=== PATIENT | female | born 1980 | race Caucasian/White ===

== ENCOUNTER 2018-03-13 21:20 | Inpatient (IN) | payer OTHER ==
[2018-03-13] MEDS: NS 1,000 ML IV (20:54)
[2018-03-13] MEDS: ONDANSETRON 4MG/2ML VIAL (J2405) IV (20:54)
[2018-03-13] MEDS: MORPHINE 4 MG/ML 1ML VIAL/SYRINGE (J2270) IV (20:55)
[2018-03-13 21:10] LABS: BASO # 0.1 10^3/uL (0.0-0.2); BASO % 0.3 % (0.0-1.0); EOS # 0.1 10^3/uL (0.0-0.50); EOS % 0.5 % (0.0-3.0); HEMATOCRIT 42.9 % (36.0-47.0); IMMATURE GRANULOCYTE % 0.4 % (0-3.0); LYMPH % 12.2 % (24.0-44.0); MEAN CORPUSCULAR HEMOGLOBIN 32.4 pg (27.0-33.0); MEAN CORPUSCULAR HGB CONC 32.6 g/dl (32.0-36.5); MEAN CORPUSCULAR VOLUME 99.3 fl (80.0-96.0); MONO # 0.8 10^3/uL (0.0-0.8); MONO % 5.2 % (0.0-5.0); NEUTROPHILS # 13.2 10^3/uL (1.8-7.7); NEUTROPHILS % 81.4 % (36.0-66.0); PLATELET COUNT, AUTOMATED 303 10^3/uL (150-450); RED BLOOD COUNT 4.32 10^6/uL (4.00-5.40); RED CELL DISTRIBUTION WIDTH 12.3 % (11.5-14.5); WHITE BLOOD COUNT 16.2 10^3/uL (4.0-10.0)
[2018-03-13] MEDS: LORazepam 2 MG/ML VIAL (J2060) IV (21:17)
[2018-03-13 21:39] LABS: ALBUMIN 3.5 GM/DL (3.2-5.2); ALBUMIN/GLOBULIN RATIO 0.97 (1.00-1.93); ALKALINE PHOSPHATASE 92 U/L (45-117); ALT/SGPT 217 U/L (12-78); ANION GAP 8 MEQ/L (8-16); AST/SGOT 243 U/L (7-37); BILIRUBIN,DIRECT 0.4 MG/DL (0.0-0.2); BILIRUBIN,TOTAL 0.7 MG/DL (0.2-1.0); BLOOD UREA NITROGEN 15 MG/DL (7-18); CALCIUM LEVEL 8.8 MG/DL (8.5-10.1); CARBON DIOXIDE LEVEL 26 MEQ/L (21-32); CHLORIDE LEVEL 106 MEQ/L (98-107); CREATININE FOR GFR 0.69 MG/DL (0.55-1.30); GLOMERULAR FILTRATION RATE > 60.0 (>60); GLUCOSE, FASTING 104 MG/DL (70-100); LIPASE 89 U/L (73-393); POTASSIUM SERUM 3.7 MEQ/L (3.5-5.1); SODIUM LEVEL 140 MEQ/L (136-145); TOTAL PROTEIN 7.1 GM/DL (6.4-8.2)
[2018-03-13 22:12] LABS: AMORPHOUS SEDIMENT RFX SMALL (NEGATIVE); KETONE, URINE AUTO RFX NEGATIVE (NEGATIVE); MUCUS, URINE RFX SMALL (NEGATIVE); NITRITE, URINE AUTO RFX NEGATIVE (NEGATIVE); RBC, URINE AUTO RFX 2 /HPF (0-3); SPECIFIC GRAVITY UR AUTO RFX 1.018 (1.002-1.035); SQUAM EPITHELIAL CELL UR AURFX 6 /HPF (0-6); WBC, URINE AUTO RFX 4 /HPF (0-3)
[2018-03-13] MEDS: NICOTINE 21MG/24HR 1 EA TRANSDERMAL TD ×2 (22:30→23:36)
[2018-03-13 22:41] LABS: LEUKOCYTE ESTERASE UR AUTO RFX TRACE (NEGATIVE)
[2018-03-13] MEDS: PIPERACILLIN/TAZOBACTAM SOD 3.375 GM in D5W MINI-BAG PLUS 50 ML IV (23:32)
[2018-03-14] MEDS: NS 1,000 ML IV ×2 (00:15→12:50)
[2018-03-14] MEDS: MORPHINE 4 MG/ML 1ML VIAL/SYRINGE (J2270) IV ×2 (00:54→20:50)
[2018-03-14] MEDS: PIPERACILLIN/TAZOBACTAM SOD 3.375 GM in D5W MINI-BAG PLUS 50 ML IV ×4 (06:00→23:22)
[2018-03-14] MEDS: HEPARIN SOD (PORCINE) 5000 UNITS/ML VIAL SC ×3 (06:40→20:51)
[2018-03-14 08:37] LABS: HEMATOCRIT 38.6 % (36.0-47.0); HEMOGLOBIN 12.3 g/dl (12.0-15.5); MEAN CORPUSCULAR HEMOGLOBIN 32.4 pg (27.0-33.0); MEAN CORPUSCULAR HGB CONC 31.9 g/dl (32.0-36.5); MEAN CORPUSCULAR VOLUME 101.6 fl (80.0-96.0); PLATELET COUNT, AUTOMATED 247 10^3/uL (150-450); RED CELL DISTRIBUTION WIDTH 12.5 % (11.5-14.5); WHITE BLOOD COUNT 9.5 10^3/uL (4.0-10.0)
[2018-03-14 08:52] LABS: C REACTIVE PROTEIN QUANTITATIV 0.85 MG/DL (0.00-0.30)
[2018-03-14 08:57] LABS: ALBUMIN/GLOBULIN RATIO 1.03 (1.00-1.93); ALKALINE PHOSPHATASE 94 U/L (45-117); ALT/SGPT 377 U/L (12-78); ANION GAP 4 MEQ/L (8-16); AST/SGOT 297 U/L (7-37); BILIRUBIN,TOTAL 1.7 MG/DL (0.2-1.0); BLOOD UREA NITROGEN 9 MG/DL (7-18); CALCIUM LEVEL 8.2 MG/DL (8.5-10.1); CARBON DIOXIDE LEVEL 27 MEQ/L (21-32); CHLORIDE LEVEL 109 MEQ/L (98-107); GLOMERULAR FILTRATION RATE > 60.0 (>60); GLUCOSE, FASTING 99 MG/DL (70-100); POTASSIUM SERUM 4.2 MEQ/L (3.5-5.1); SODIUM LEVEL 140 MEQ/L (136-145); TOTAL PROTEIN 5.9 GM/DL (6.4-8.2)
[2018-03-14] MEDS ORDERED: LORazepam 1 MG TAB PO (09:00)
[2018-03-14 09:03] LABS: ERYTHROCYTE SEDIMENTATION RATE 9 mm/hr (0-20)
[2018-03-14] MEDS: LORazepam 0.5 MG TAB PO ×2 (10:21→20:50)
[2018-03-14] MEDS: VENLAFAXINE 37.5 MG TAB PO (10:22)
[2018-03-14 20:02] LABS: ALBUMIN 2.9 GM/DL (3.2-5.2); ALBUMIN/GLOBULIN RATIO 0.94 (1.00-1.93); ALKALINE PHOSPHATASE 120 U/L (45-117); ALT/SGPT 355 U/L (12-78); AST/SGOT 211 U/L (7-37); BILIRUBIN,DIRECT 0.9 MG/DL (0.0-0.2); BILIRUBIN,TOTAL 1.4 MG/DL (0.2-1.0)
[2018-03-14] MEDS: NICOTINE 21MG/24HR 1 EA TRANSDERMAL TD (21:29)
[2018-03-15] MEDS: NS 1,000 ML IV (01:15)
[2018-03-15] MEDS: HEPARIN SOD (PORCINE) 5000 UNITS/ML VIAL SC (05:56)
[2018-03-15] MEDS: PIPERACILLIN/TAZOBACTAM SOD 3.375 GM in D5W MINI-BAG PLUS 50 ML IV (06:00)
[2018-03-15 08:24] LABS: HEMATOCRIT 39.2 % (36.0-47.0); HEMOGLOBIN 12.5 g/dl (12.0-15.5); MEAN CORPUSCULAR HGB CONC 31.9 g/dl (32.0-36.5); MEAN CORPUSCULAR VOLUME 100.3 fl (80.0-96.0); PLATELET COUNT, AUTOMATED 237 10^3/uL (150-450); RED BLOOD COUNT 3.91 10^6/uL (4.00-5.40); RED CELL DISTRIBUTION WIDTH 12.3 % (11.5-14.5); WHITE BLOOD COUNT 6.6 10^3/uL (4.0-10.0)
[2018-03-15 08:27] LABS: ALBUMIN/GLOBULIN RATIO 1.07 (1.00-1.93); ALKALINE PHOSPHATASE 125 U/L (45-117); ALT/SGPT 303 U/L (12-78); ANION GAP 6 MEQ/L (8-16); AST/SGOT 139 U/L (7-37); BILIRUBIN,TOTAL 0.7 MG/DL (0.2-1.0); BLOOD UREA NITROGEN 6 MG/DL (7-18); CARBON DIOXIDE LEVEL 25 MEQ/L (21-32); CHLORIDE LEVEL 111 MEQ/L (98-107); CREATININE FOR GFR 0.63 MG/DL (0.55-1.30); GLOMERULAR FILTRATION RATE > 60.0 (>60); GLUCOSE, FASTING 91 MG/DL (70-100); POTASSIUM SERUM 3.5 MEQ/L (3.5-5.1); SODIUM LEVEL 142 MEQ/L (136-145); TOTAL PROTEIN 5.8 GM/DL (6.4-8.2)
[2018-03-15 10:34] LABS: HEPATITIS B SURFACE ANTIGEN NEGATIVE (NEGATIVE)
[2018-03-15] MEDS: LORazepam 0.5 MG TAB PO (10:35)
[2018-03-15] MEDS: VENLAFAXINE 37.5 MG TAB PO (10:35)
[2018-03-15 11:01] LABS: HEPATITIS C VIRUS ABY INDEX < 0.0 INDEX (<0.8)
[2018-03-15 11:04] LABS: HEPATITIS A ANTIBODY IGM NEGATIVE (NEGATIVE)
== END 2018-03-15 11:57 | disposition home or self-care (01) ==
LOC: M ED INP 23:59 → M PED 03-14 01:05 → M ED 21:20
PROVIDERS: Hospitalist
DX: K80.70 Calculus of gallbladder and bile duct without cholecystitis without obstruction (principal); Z68.41 Body mass index [BMI] 40.0-44.9, adult; F41.9 Anxiety disorder, unspecified; Z79.899 Other long term (current) drug therapy; F17.200 Nicotine dependence, unspecified, uncomplicated

== ENCOUNTER → 2019-07-31 | Outpatient (CLI) | payer OTHER ==
[~2019-07-31] MED LIST: AUGM875T28 PO; LORA0.5T5; LORA1TAB4 PO; METH4PACK; OXYC-517 PO; VALA1TAB5; VENL37TA; VENL37TA PO
--- NOTE | 2019-07-31 13:48 | REP ---
PELVIC ULTRASOUND: Real-time sonographic evaluation of the pelvis performed utilizing transabdominal and endovaginal technique. Uterus measures 11.6 x 5.7 x 7.3 cm. No gestational sac is seen in the endometrial canal. Right ovary measures 4.3 x 3.0 x 3.6 cm and contains a complex cystic structures 2.1 cm. Left ovary is normal in size and echotexture 2.1 x 1.8 x 1.9 cm. There is no other evidence of adnexal mass or free fluid. The above findings could indicate very early intrauterine , missed AB or ectopic . Suggest correlation with serial quantitative beta hCG values. Electronically Signed by Durga Esposito MD 08/01/2019 09:09 A
== END ==
LOC: M RAD 12:34
PROVIDERS: ATTEND Nurse Practitioner Family
DX: Z32.01 Encounter for pregnancy test, result positive (principal)

== ENCOUNTER → 2020-08-13 | Outpatient (REF) | payer OTHER | LOC: M LAB REF 12:15 | PROVIDERS: ATTEND Advanced Practice Midwife | DX: Z34.83 Encounter for supervision of other normal pregnancy, third trimester (principal) ==

== ENCOUNTER 2020-09-10 06:29 | Inpatient (IN) | payer OTHER ==
[~2020-09-10] VITALS: Ht 162.6 cm; Wt 131.4 kg
[2020-09-10 07:06] VITALS: BP 129/81
[2020-09-10 08:07] VITALS: BP 133/68
[2020-09-10 08:16] LABS: HEMOGLOBIN 11.6 g/dl (12.0-15.5); MEAN CORPUSCULAR HEMOGLOBIN 31.1 pg (27.0-33.0); MEAN CORPUSCULAR HGB CONC 31.4 g/dl (32.0-36.5); MEAN CORPUSCULAR VOLUME 99.2 fl (80.0-96.0); PLATELET COUNT, AUTOMATED 143 10^3/uL (150-450); RED BLOOD COUNT 3.73 10^6/uL (4.00-5.40); WHITE BLOOD COUNT 13.6 10^3/uL (4.0-10.0)
--- NOTE | 2020-09-10 08:26 | IPNPDOC ---
Text Note Date of Service The patient was seen on 09/10/20. NOTE L&D triage note Morena is a 40yo with SIUP at 39wk having hx of 1 section followed by 3 successful VBACs presenting with ctx. She notes they have become increasingly more uncomfortable over the past couple hours. No LOF, no vaginal bleeding, good movement. Patient sees Dr. Rodriguez for her OB care. Vitals wnl, afebrile Gen: WDWN, obese female in NAD Abdomen: soft, gravid SCE performed by RN on presentation at 0630: 3-4/80/-2, posterior (in office cervix check prior to this was 2-3cm reportedly) Cat I FHRT with bl 120's, +accels, -decels, mod eliseo Naranja: ctx difficult to trace given morbid obesity Assessment: Morena is a 40yo with SIUP at 39wk with ctx, possibly in early labor. Vitals wnl, benign exam. Reassuring assessment Plan: -Recheck SCE 2hr after prior and if there is cervical change, would admit -Obtain routine labs now in the event that patient is in labor since she will desire an epidural -report given to EMMA Mendoza who will discuss care further with Dr. Rodriguez after next SCE -CEFM MD REINA Rome Fishbone, I+O Diana HUANG I+O Laboratory Tests 09/10/20 08:02 Aline Burciaga MD Sep 10, 2020 08:26
[2020-09-10] MEDS ORDERED: OXYTOCIN 30 UNITS IN 0.9% NaCl 500ML IV BAG (J2590) As Ordered ONE (08:36)
[2020-09-10 08:47] VITALS: BP 131/87
[2020-09-10] MEDS ORDERED: OXYTOCIN DRIP 30 UNITS in IV 1 EA IV PRN (09:00)
[2020-09-10] MEDS ORDERED: IBUPROFEN 800 MG TAB PO PRN (09:25)
[2020-09-10] MEDS ORDERED: METHYLERGONOVINE MALEATE 0.2 MG TAB PO PRN (09:25)
[2020-09-10] MEDS ORDERED: ACETAMINOPHEN TAB 650MG DOSE (2X325MG) PO PRN (09:25)
[2020-09-10] MEDS ORDERED: ANUSOL HC CREAM 30GM TOP PRN (09:25)
[2020-09-10] MEDS ORDERED: RHOGAM 300 MCG (1500 IU) INJ (J2790) IM SCH (09:25)
[2020-09-10] MEDS ORDERED: IBUPROFEN 600MG TAB PO PRN (09:25)
[2020-09-10] MEDS ORDERED: MEASLES,MUMPS,RUBELLA VACCINE INJ (MMR-II) (90707) SC SCH (09:25)
[2020-09-10] MEDS ORDERED: DIBUCAINE 1% OINTMENT 30GM TOP PRN (09:25)
[2020-09-10] MEDS ORDERED: DOCUSATE SODIUM 100MG CAPSULE PO PRN (09:25)
--- NOTE | 2020-09-10 09:34 | HPE ---
HISTORY AND PHYSICAL DATE OF ADMISSION: 09/10/2020 HISTORY OF PRESENT ILLNESS: Morena is a 40-year-old 9, para 7-0-2-7 at 39 weeks gestation, EDC of 09/17/2020 based on first trimester ultrasound. She presents to labor and delivery today at approximately 0650 with report of contractions that started at 0200 and that have become increasingly uncomfortable. She reports them to be about every five minutes. Denies vaginal bleeding or leakage of fluid. The fetus has been active. care was initiated at [facility] in the first trimester. course complicated by prior section with successful x3, as well as positive GBS screening at 160 and noncompliant to not complete the three hour glucose tolerance test. She reports her fetus has been active. Denies vaginal bleeding and leakage of fluid. Contractions every five minutes. OBSTETRIC HISTORY: 1. one vaginal at 42 weeks gestation, female 6 pounds 11 ounces. 2. two vaginal 6 pound 3 ounce female at 41 weeks gestation. 3. three low transverse section with weight 6 pounds 10 ounces at 40 weeks. 4. four 9 pounds 1 ounce at 40 weeks female. 5. five male 7 pounds 11 ounces. 6. six 7 pounds 4 ounce male at 39 weeks gestation. 7. seven spontaneous miscarriage. 8. eight elective termination of . OBSTETRIC LABORATORY DATA: A positive. Antibody screen negative. Rubella immune. VDRL nonreactive. Urine culture now growth. Hepatitis B surface antigen negative. HIV negative. Pap normal. Gonorrhea and chlamydia negative. Gestational diabetic screening abnormal at 160; she did not complete the three hour glucose tolerance test. No diagnosis of gestational diabetes was ever confirmed. Group B strep culture negative. PAST MEDICAL HISTORY: Non-contributory. Obesity. PAST SURGICAL HISTORY: section. FAMILY HISTORY: Gastrointestinal cancer. SOCIAL HISTORY: The patient is legally . She is a smoker. She denies alcohol and drug use. She denies any history of sexually transmitted infections. She denies history of abuse physical, sexual, and emotional. ALLERGIES: SULFATRIM. CURRENT MEDICATIONS: 1. Venlafaxine 37.5 mg. 2. Lorazepam 0.5 mg. PHYSICAL EXAMINATION: VITAL SIGNS: BP 129/81. heart rate was 130 with moderate variability, positive accelerations, and positive early decelerations. Contractions appear to be every five minutes. PELVIC: Sterile vaginal exam performed at 0652 by RN, at 3-4 cm dilated, 80% effaced, -2 station, intact. ASSESSMENT: Intrauterine at 39 weeks gestation. heart rate is category 1. Active labor. PLAN: Admit the patient to labor and delivery. Routine laboratories. Clear liquid diet. Anticipate spontaneous vaginal delivery (vaginal after section). The patient may consider IV pain medications or epidural for her labor coping.
--- NOTE | 2020-09-10 09:34 | DN ---
DELIVERY NOTE DATE OF DELIVERY: 09/10/2020 TIME OF : 0836 GENDER: Male APGARS: 9 and 9 LACERATIONS: None ANESTHESIA: None ESTIMATED BLOOD LOSS: COUNTS: Correct and verified DESCRIPTION OF DELIVERY: Morena is 11, para 7-0-2-7 now who was admitted to labor and delivery in active labor. Her labor progressed under its own sanchez. She coped with her labor physiologically. She had spontaneous rupture of membranes of light meconium-stained fluid at 0830. She pushed to a normal spontaneous vaginal delivery (vaginal after section) at 0836 in occiput anterior (OA) position with restitution to right occiput transverse (ROT) position at 0836. Shoulders delivered spontaneously and the corpus immediately followed. [place] male. Mouth and nares were bulb suctioned and he was placed on the maternal abdomen crying and active. Cord was clamped x2 once pulsations ceased and cut by the father of the baby under my direction. Spontaneous expulsion of an intact placenta with three-vessel cord by Pham mechanism was at 0846. Uterine hemostasis achieved with IV Pitocin rapid infusion and uterine fundal massage. Estimated blood loss 300 mL. Perineum and vagina inspected noted to be intact. male weighed 3750 grams, 8 pounds 4 ounces with 9 and 9. Mom plans to breastfeed her son. At the close of delivery, lap counts and instruments counts were correct and verified.
[2020-09-10 11:10] VITALS: BP 130/69
[2020-09-10] MEDS: LORazepam 0.5 MG TAB PO SCH (11:50)
[2020-09-10] MEDS: VENLAFAXINE 37.5 MG TAB PO SCH (11:50)
[2020-09-10] MEDS: PRENATAL VITAMINS CHEWABLE TABLET PO SCH (11:51)
[2020-09-10 18:00] VITALS: BP 157/82
[2020-09-10] MEDS: ACETAMINOPHEN 500 MG TAB PO PRN (22:48)
[2020-09-11 06:00] VITALS: BP 124/69
[2020-09-11] MEDS: ACETAMINOPHEN 500 MG TAB PO PRN (08:15)
[2020-09-11] MEDS: PRENATAL VITAMINS CHEWABLE TABLET PO SCH (08:15)
[2020-09-11] MEDS: LORazepam 0.5 MG TAB PO SCH (08:15)
[2020-09-11] MEDS: VENLAFAXINE 37.5 MG TAB PO SCH (08:25)
[2020-09-11] MEDS ORDERED: BOOSTRIX/ADACEL VACCINE (DIPHTH/PERTUSS/ACELL/TETANUS) 0.5ML SYR IM ONE (09:00)
[2020-09-11] MEDS ORDERED: IBUP80TA PO (09:12)
[2020-09-11] MEDS ORDERED: ACET-683 PO (09:12)
== END 2020-09-11 09:30 | disposition home or self-care (01) | DRG 560 ==
LOC: M LDO 06:29 → M LDI 06:59 → M OBS 11:02
PROVIDERS: ADMIT Obstetrics & Gynecology; ATTEND Obstetrics & Gynecology
PROC: 10E0XZZ Delivery of Products of Conception, External Approach (ICD-10-PCS; principal; 2020-09-10)
DX: O34.211 Maternal care for low transverse scar from previous cesarean delivery (principal); Z37.0 Single live birth; Z3A.39 39 weeks gestation of pregnancy; O09.523 Supervision of elderly multigravida, third trimester; Z91.19 Patient's noncompliance with other medical treatment and regimen; F17.200 Nicotine dependence, unspecified, uncomplicated; O99.334 Smoking (tobacco) complicating childbirth

== ENCOUNTER → 2021-02-17 | Outpatient (REF) | payer OTHER ==
[~2021-02-17] MED LIST changes: +ACET-683 PO; +IBUP80TA PO
[2021-02-17 18:08] LABS: HEMATOCRIT 40.4 % (36.0-47.0); HEMOGLOBIN 12.5 g/dl (12.0-15.5); MEAN CORPUSCULAR HEMOGLOBIN 29.8 pg (27.0-33.0); MEAN CORPUSCULAR HGB CONC 30.9 g/dl (32.0-36.5); MEAN CORPUSCULAR VOLUME 96.2 fl (80.0-96.0); PLATELET COUNT, AUTOMATED 262 10^3/uL (150-450); WHITE BLOOD COUNT 11.7 10^3/uL (4.0-10.0)
[2021-02-17 21:03] LABS: HCG, SERUM QUANTITATIVE 26283 MIU/ML; HIV 1&2 SCREEN CENTAUR NEGATIVE (NEGATIVE)
== END ==
LOC: M LAB REF 16:49
PROVIDERS: ATTEND Obstetrics & Gynecology
DX: Z32.01 Encounter for pregnancy test, result positive (principal); O36.80X0 Pregnancy with inconclusive fetal viability, not applicable or unspecified

== ENCOUNTER → 2021-04-16 | Outpatient (REF) | payer OTHER | LOC: M LAB REF 12:54 | PROVIDERS: ATTEND Advanced Practice Midwife | DX: Z34.81 Encounter for supervision of other normal pregnancy, first trimester (principal); Z3A.00 Weeks of gestation of pregnancy not specified ==

== ENCOUNTER 2021-06-08 14:00 | Emergency (ER) | payer OTHER ==
[~2021-06-08] VITALS: Ht 160 cm; Wt 127.3 kg
[2021-06-08 15:15] LABS: BASO % 0.2 % (0.0-1.0); EOS # 0.1 10^3/uL (0.0-0.5); EOS % 0.3 % (0.0-3.0); HEMATOCRIT 34.7 % (36.0-47.0); HEMOGLOBIN 11.3 g/dl (12.0-15.5); LYMPH # 1.5 10^3/uL (1.5-5.0); LYMPH % 10.1 % (24.0-44.0); MEAN CORPUSCULAR HEMOGLOBIN 32.4 pg (27.0-33.0); MEAN CORPUSCULAR HGB CONC 32.6 g/dl (32.0-36.5); MEAN CORPUSCULAR VOLUME 99.4 fl (80.0-96.0); MONO # 0.6 10^3/uL (0.0-0.8); NEUTROPHILS # 12.4 10^3/uL (1.5-8.5); NEUTROPHILS % 84.9 % (36.0-66.0); PLATELET COUNT, AUTOMATED 207 10^3/uL (150-450); RED BLOOD COUNT 3.49 10^6/uL (4.00-5.40); WHITE BLOOD COUNT 14.6 10^3/uL (4.0-10.0)
[2021-06-08] MEDS ORDERED: HEPARIN SOD (PORCINE) 5000UNITS/ML 1ML VIAL/SYRINGE IV ONE (15:25)
[2021-06-08] MEDS ORDERED: HEPARIN DRIP 25,000 UNITS in IV 1 EA IV SCH (15:25)
[2021-06-08 15:28] LABS: INR 0.95; PROTHROMBIN TIME 13.1 SECONDS (12.7-14.5)
[2021-06-08 15:29] LABS: PARTIAL THROMBOPLASTIN TIME 25.2 SECONDS (25.9-37.0)
[2021-06-08] MEDS ORDERED: ISOVUE-370 76% 100ML VIAL As Ordered ONE (15:34)
[2021-06-08] MEDS ORDERED: CLOPIDOGREL 300 MG TAB (PLAVIX) PO STA (16:23)
[2021-06-08 16:33] LABS: RSV AMPLIFICATION NEGATIVE (NEGATIVE)
[2021-06-08] MEDS ORDERED: NITROGLYCERIN 0.4 MG SUBL TABLET SL STA (18:06)
[2021-06-08 18:15] VITALS: BP 128/69
== END 2021-06-08 18:37 | disposition short-term general hospital (02) ==
LOC: M ED 14:00
DX: O99.412 Diseases of the circulatory system complicating pregnancy, second trimester (principal); I21.4 Non-ST elevation (NSTEMI) myocardial infarction; O98.512 Other viral diseases complicating pregnancy, second trimester; U07.1 COVID-19; O99.342 Other mental disorders complicating pregnancy, second trimester; F41.9 Anxiety disorder, unspecified; O99.212 Obesity complicating pregnancy, second trimester; Z79.899 Other long term (current) drug therapy; Z88.1 Allergy status to other antibiotic agents; Z88.2 Allergy status to sulfonamides; O99.332 Smoking (tobacco) complicating pregnancy, second trimester; F17.210 Nicotine dependence, cigarettes, uncomplicated; Z3A.23 23 weeks gestation of pregnancy
CPT/HCPCS: 71045; 71275; 80047; 85025; 85610; 85730; 87631; 93005; 96365; 96366; 99285; J1644; Q9967

== ENCOUNTER → 2021-07-12 | Outpatient (CLI) | payer OTHER | LOC: M RAD 11:35 | PROVIDERS: ATTEND Internal Medicine Interventional Cardiology | DX: I50.9 Heart failure, unspecified (principal) ==

== ENCOUNTER 2021-09-09 13:28 | Outpatient (RCR) | payer OTHER | END 2021-09-12 | LOC: M PT 13:28 | PROVIDERS: ATTEND Internal Medicine Interventional Cardiology | DX: I21.09 ST elevation (STEMI) myocardial infarction involving other coronary artery of anterior wall (principal); I25.5 Ischemic cardiomyopathy; I50.9 Heart failure, unspecified ==

== ENCOUNTER → 2021-09-17 | Outpatient (CLI) | payer OTHER | LOC: M LABSMTC 10:39 | PROVIDERS: ATTEND Internal Medicine Interventional Cardiology | DX: Z20.822 Contact with and (suspected) exposure to COVID-19 (principal); I25.5 Ischemic cardiomyopathy; I50.22 Chronic systolic (congestive) heart failure ==

== ENCOUNTER → 2021-09-17 | Outpatient (CLI) | payer OTHER ==
[2021-09-17 11:45] LABS: BASO # 0.1 10^3/uL (0.0-0.2); BASO % 0.6 % (0.0-1.0); EOS # 0.2 10^3/uL (0.0-0.5); HEMATOCRIT 40.5 % (36.0-47.0); HEMOGLOBIN 12.6 g/dl (12.0-15.5); LYMPH % 20.7 % (24.0-44.0); MEAN CORPUSCULAR HEMOGLOBIN 33.5 pg (27.0-33.0); MEAN CORPUSCULAR HGB CONC 31.1 g/dl (32.0-36.5); MEAN CORPUSCULAR VOLUME 107.7 fl (80.0-96.0); MONO # 0.5 10^3/uL (0.0-0.8); MONO % 5.7 % (2.0-8.0); NEUTROPHILS # 6.7 10^3/uL (1.5-8.5); NEUTROPHILS % 70.7 % (36.0-66.0); PLATELET COUNT, AUTOMATED 249 10^3/uL (150-450); RED BLOOD COUNT 3.76 10^6/uL (4.00-5.40); WHITE BLOOD COUNT 9.4 10^3/uL (4.0-10.0)
[2021-09-17 12:26] LABS: BLOOD UREA NITROGEN 14 MG/DL (7-18); CALCIUM LEVEL 9.2 MG/DL (8.5-10.1); CARBON DIOXIDE LEVEL 29 MEQ/L (21-32); CHLORIDE LEVEL 108 MEQ/L (98-107); GLOMERULAR FILTRATION RATE > 60.0 (>60); GLUCOSE, FASTING 88 MG/DL (70-100); POTASSIUM SERUM 4.3 MEQ/L (3.5-5.1); SODIUM LEVEL 141 MEQ/L (136-145)
== END ==
LOC: M LAB 11:05
PROVIDERS: ATTEND Internal Medicine Interventional Cardiology
DX: I25.5 Ischemic cardiomyopathy (principal); I50.22 Chronic systolic (congestive) heart failure

== ENCOUNTER 2021-09-28 19:37 | Emergency (ER) | payer OTHER ==
[~2021-09-28] VITALS: Ht 157.5 cm; Wt 113.6 kg
[2021-09-28 22:12] LABS: HEMATOCRIT 40.9 % (36.0-47.0); MEAN CORPUSCULAR HEMOGLOBIN 33.7 pg (27.0-33.0); MEAN CORPUSCULAR HGB CONC 31.8 g/dl (32.0-36.5); PLATELET COUNT, AUTOMATED 265 10^3/uL (150-450); RED BLOOD COUNT 3.86 10^6/uL (4.00-5.40); WHITE BLOOD COUNT 13.8 10^3/uL (4.0-10.0)
[2021-09-28 22:39] LABS: BLOOD UREA NITROGEN 16 MG/DL (7-18); CARBON DIOXIDE LEVEL 27 MEQ/L (21-32); CHLORIDE LEVEL 107 MEQ/L (98-107); CK-MB VALUE MASS < 1.0 NG/ML (<3.6); CPK CREATINE PHOSPHOKINASE 67 U/L (26-192); CREATININE FOR GFR 0.81 MG/DL (0.55-1.30); GLOMERULAR FILTRATION RATE > 60.0 (>60); GLUCOSE, FASTING 97 MG/DL (70-100); MB/CK RELATIVE INDEX 1.49 (< OR =4); NT-PRO BNP 976 PG/ML (<125); POTASSIUM SERUM 4.4 MEQ/L (3.5-5.1); SODIUM LEVEL 140 MEQ/L (136-145)
[2021-09-29 00:59] LABS: CK-MB VALUE MASS < 1.0 NG/ML (<3.6); CPK CREATINE PHOSPHOKINASE 59 U/L (26-192); MB/CK RELATIVE INDEX 1.69 (< OR =4)
[2021-09-29 03:01] VITALS: BP 121/56
== END 2021-09-29 03:15 | disposition home or self-care (01) ==
LOC: M ED 19:37
DX: R53.1 Weakness (principal); R94.31 Abnormal electrocardiogram [ECG] [EKG]; F41.9 Anxiety disorder, unspecified; Z86.79 Personal history of other diseases of the circulatory system; Z88.2 Allergy status to sulfonamides; Z79.899 Other long term (current) drug therapy

== ENCOUNTER 2021-11-09 13:28 | Outpatient (RCR) | payer OTHER | END 2021-11-12 | LOC: M PT 13:28 | PROVIDERS: ATTEND Internal Medicine Interventional Cardiology | DX: I21.09 ST elevation (STEMI) myocardial infarction involving other coronary artery of anterior wall (principal) ==

== ENCOUNTER → 2023-03-06 | Outpatient (CLI) | payer OTHER ==
[~2023-03-06] MED LIST changes: +LORA1TAB23 PO; -LORA1TAB4 PO
[2023-03-06 12:15] LABS: BASO % 0.4 % (0.0-1.0); EOS # 0.2 10^3/uL (0.0-0.5); EOS % 1.7 % (0.0-3.0); HEMATOCRIT 41.1 % (36.0-47.0); HEMOGLOBIN 13.4 g/dl (12.0-15.5); LYMPH % 19.3 % (24.0-44.0); MEAN CORPUSCULAR HGB CONC 32.6 g/dl (32.0-36.5); MEAN CORPUSCULAR VOLUME 104.3 fl (80.0-96.0); MONO # 0.4 10^3/uL (0.0-0.8); MONO % 4.2 % (2.0-8.0); NEUTROPHILS # 7.7 10^3/uL (1.5-8.5); NEUTROPHILS % 74.1 % (36.0-66.0); PLATELET COUNT, AUTOMATED 264 10^3/uL (150-450); RED BLOOD COUNT 3.94 10^6/uL (4.00-5.40); WHITE BLOOD COUNT 10.4 10^3/uL (4.0-10.0)
== END ==
LOC: M RAD 11:24
PROVIDERS: ATTEND Nurse Practitioner Family
DX: Z01.812 Encounter for preprocedural laboratory examination (principal); Z13.220 Encounter for screening for lipoid disorders; D51.9 Vitamin B12 deficiency anemia, unspecified; E55.9 Vitamin D deficiency, unspecified; E66.01 Morbid (severe) obesity due to excess calories; Z01.810 Encounter for preprocedural cardiovascular examination

== ENCOUNTER → 2023-03-30 | Outpatient (CLI) | payer OTHER ==
[~2023-03-30] MED LIST changes: +E-Z-GAS II EFFERVESCENT PACKET (SODIUM BICARB./CITRIC ACID/SIMETHICONE) As Ordered ONE; +E-Z-HD 98% w/w 340GM SUSP BTL As Ordered ONE; +E-Z-PAQUE 96% w/w SUSP 176GM BTL As Ordered ONE
== END ==
LOC: M RAD 08:17
PROVIDERS: ATTEND Nurse Practitioner Family
DX: K21.9 Gastro-esophageal reflux disease without esophagitis (principal); E66.01 Morbid (severe) obesity due to excess calories

== ENCOUNTER → 2023-06-27 | Outpatient (REF) | payer OTHER ==
[~2023-06-27] MED LIST changes: -E-Z-GAS II EFFERVESCENT PACKET (SODIUM BICARB./CITRIC ACID/SIMETHICONE) As Ordered ONE; -E-Z-HD 98% w/w 340GM SUSP BTL As Ordered ONE; -E-Z-PAQUE 96% w/w SUSP 176GM BTL As Ordered ONE
== END ==
LOC: M LAB REF 16:11
PROVIDERS: ATTEND Physician Assistant Medical
DX: B34.9 Viral infection, unspecified (principal)

== ENCOUNTER → 2023-08-10 | Outpatient (REF) | payer OTHER | LOC: M LAB REF 21:01 | PROVIDERS: ATTEND Physician Assistant | DX: B34.9 Viral infection, unspecified (principal) ==

== ENCOUNTER → 2023-08-19 | Outpatient (CLI) | payer OTHER | LOC: M RAD 12:44 | PROVIDERS: ATTEND Physician Assistant | DX: M46.96 Unspecified inflammatory spondylopathy, lumbar region (principal) ==

== ENCOUNTER → 2023-09-15 | Outpatient (CLI) | payer OTHER ==
[2023-09-15 14:34] LABS: BASO % 0.5 % (0.0-1.0); EOS # 0.1 10^3/uL (0.0-0.5); HEMATOCRIT 34.6 % (36.0-47.0); HEMOGLOBIN 11.3 g/dl (12.0-15.5); LYMPH # 1.4 10^3/uL (1.5-5.0); LYMPH % 21.2 % (24.0-44.0); MEAN CORPUSCULAR HEMOGLOBIN 34.3 pg (27.0-33.0); MEAN CORPUSCULAR HGB CONC 32.7 g/dl (32.0-36.5); MEAN CORPUSCULAR VOLUME 105.2 fl (80.0-96.0); MONO # 0.3 10^3/uL (0.0-0.8); MONO % 4.9 % (2.0-8.0); NEUTROPHILS # 4.5 10^3/uL (1.5-8.5); NEUTROPHILS % 71.1 % (36.0-66.0); PLATELET COUNT, AUTOMATED 218 10^3/uL (150-450); RED BLOOD COUNT 3.29 10^6/uL (4.00-5.40); WHITE BLOOD COUNT 6.4 10^3/uL (4.0-10.0)
== END ==
LOC: M LAB 13:59
PROVIDERS: ATTEND Nurse Practitioner Family
DX: Z79.01 Long term (current) use of anticoagulants (principal); Z98.84 Bariatric surgery status

== ENCOUNTER → 2023-11-07 | Outpatient (CLI) | payer OTHER ==
[2023-11-07 12:28] LABS: ALBUMIN 3.6 G/DL (3.2-5.2); ALKALINE PHOSPHATASE 81 U/L (46-116); ALT/SGPT 69 U/L (7.0-40); AST/SGOT 30 U/L (<34); BILIRUBIN,TOTAL 0.8 MG/DL (0.3-1.2); BLOOD UREA NITROGEN 13 MG/DL (9-23); CALCIUM LEVEL 8.8 MG/DL (8.5-10.1); CARBON DIOXIDE LEVEL 27 MMOL/L (20-31); CHLORIDE LEVEL 109 MMOL/L (98-107); CREATININE FOR GFR 0.58 MG/DL (0.55-1.30); GLOMERULAR FILTRATION RATE > 60.0 (>58); GLUCOSE, FASTING 98 MG/DL (60-100); MAGNESIUM LEVEL 1.7 MG/DL (1.8-2.4); POTASSIUM SERUM 3.9 MMOL/L (3.5-5.1); SODIUM LEVEL 141 MMOL/L (136-145)
== END ==
LOC: M LAB 11:23
PROVIDERS: ATTEND Physician Assistant
DX: G47.62 Sleep related leg cramps (principal)

== ENCOUNTER → 2023-11-21 | Outpatient (CLI) | payer MEDICARE | LOC: M LAB 13:46 | PROVIDERS: ATTEND Nurse Practitioner Family | DX: Z79.01 Long term (current) use of anticoagulants (principal); Z98.84 Bariatric surgery status ==

== ENCOUNTER → 2023-11-21 | Outpatient (REF) | payer MEDICARE | LOC: M LAB REF 10:24 | PROVIDERS: ATTEND Physician Assistant | DX: E83.42 Hypomagnesemia (principal) ==

== ENCOUNTER 2024-01-19 20:15 | Emergency (ER) | payer MEDICARE ==
[~2024-01-19] VITALS: Ht 157.5 cm; Wt 125.5 kg
[2024-01-19 20:51] LABS: BASO % 0.7 % (0.0-1.0); EOS # 0.1 10^3/uL (0.0-0.5); EOS % 2.6 % (0.0-3.0); HEMATOCRIT 32.3 % (36.0-47.0); HEMOGLOBIN 10.2 g/dl (12.0-15.5); LYMPH # 1.7 10^3/uL (1.5-5.0); LYMPH % 31.2 % (24.0-44.0); MEAN CORPUSCULAR HEMOGLOBIN 30.6 pg (27.0-33.0); MEAN CORPUSCULAR HGB CONC 31.6 g/dl (32.0-36.5); MONO # 0.3 10^3/uL (0.0-0.8); MONO % 6.1 % (2.0-8.0); NEUTROPHILS # 3.2 10^3/uL (1.5-8.5); PLATELET COUNT, AUTOMATED 233 10^3/uL (150-450); RED BLOOD COUNT 3.33 10^6/uL (4.00-5.40); WHITE BLOOD COUNT 5.4 10^3/uL (4.0-10.0)
[2024-01-19 21:16] LABS: BLOOD UREA NITROGEN 8 MG/DL (9-23); CALCIUM LEVEL 8.7 MG/DL (8.5-10.1); CARBON DIOXIDE LEVEL 23 MMOL/L (20-31); CHLORIDE LEVEL 112 MMOL/L (98-107); CREATININE FOR GFR 0.66 MG/DL (0.55-1.30); GLOMERULAR FILTRATION RATE > 60.0 (>58); GLUCOSE, FASTING 97 MG/DL (60-100); SODIUM LEVEL 143 MMOL/L (136-145)
[2024-01-19] MEDS ORDERED: ISOVUE-370 76% 100ML VIAL As Ordered ONE (21:47)
[2024-01-19 22:19] LABS: CK-MB VALUE MASS < 1.0 NG/ML (<3.6)
[2024-01-19] MEDS: NS 1,000 ML IV ONE (22:27)
[2024-01-19] MEDS: ACETAMINOPHEN *IV* 1,000 MG in IV 1 EA IV ONE (22:28)
[2024-01-19 22:30] LABS: CPK CREATINE PHOSPHOKINASE 60 U/L (34-145); MB/CK RELATIVE INDEX 1.66 (< OR =4)
[2024-01-19 23:04] LABS: INR 1.25; PARTIAL THROMBOPLASTIN TIME 27.8 SECONDS (24.8-34.2); PROTHROMBIN TIME 15.3 SECONDS (12.5-14.5)
[2024-01-19 23:18] LABS: CK-MB VALUE MASS < 1.0 NG/ML (<3.6)
[2024-01-19 23:24] LABS: CPK CREATINE PHOSPHOKINASE 44 U/L (34-145); MB/CK RELATIVE INDEX 2.27 (< OR =4)
[2024-01-20 01:30] VITALS: O2SAT 99
[2024-01-20 01:31] VITALS: BP 116/55; TEMP 98.9
== END 2024-01-20 01:34 | disposition home or self-care (01) ==
LOC: EDBD 20:15 → M ED 20:15
DX: R07.9 Chest pain, unspecified (principal); I25.2 Old myocardial infarction; I10 Essential (primary) hypertension; E78.5 Hyperlipidemia, unspecified; F41.1 Generalized anxiety disorder; Z88.2 Allergy status to sulfonamides; Z86.79 Personal history of other diseases of the circulatory system; Z79.1 Long term (current) use of non-steroidal anti-inflammatories (NSAID); Z79.899 Other long term (current) drug therapy
CPT/HCPCS: 70450; 71045; 71275; 80048; 82550; 82553; 84484; 85025; 85610; 85730; 93005; 93041; 94760; 96361; 96365; 99285; J0131; Q9967

== ENCOUNTER → 2024-03-16 | Outpatient (CLI) | payer MEDICARE ==
[2024-03-16 17:22] LABS: BASO % 0.3 % (0.0-1.0); EOS # 0.1 10^3/uL (0.0-0.5); EOS % 1.5 % (0.0-3.0); HEMATOCRIT 29.3 % (36.0-47.0); HEMOGLOBIN 8.6 g/dl (12.0-15.5); LYMPH # 1.4 10^3/uL (1.5-5.0); LYMPH % 23.4 % (24.0-44.0); MEAN CORPUSCULAR HEMOGLOBIN 27.5 pg (27.0-33.0); MEAN CORPUSCULAR HGB CONC 29.4 g/dl (32.0-36.5); MEAN CORPUSCULAR VOLUME 93.6 fl (80.0-96.0); MONO # 0.4 10^3/uL (0.0-0.8); MONO % 6.2 % (2.0-8.0); NEUTROPHILS % 68.4 % (36.0-66.0); PLATELET COUNT, AUTOMATED 286 10^3/uL (150-450); RED BLOOD COUNT 3.13 10^6/uL (4.00-5.40); WHITE BLOOD COUNT 5.9 10^3/uL (4.0-10.0)
[2024-03-16 17:51] LABS: FERRITIN 3.3 NG/ML (7.3-270.7)
[2024-03-16 17:52] LABS: FOLATE 18.04 NG/ML (>5.4); PERCENT SATURATION 5.4 % (13.2-45.0)
== END ==
LOC: M LAB 16:55
PROVIDERS: ATTEND Physician Assistant
DX: D64.9 Anemia, unspecified (principal)

== ENCOUNTER → 2024-04-26 | Outpatient (REF) | payer MEDICARE | LOC: M SFHCDERM 14:53 | PROVIDERS: ATTEND Nurse Practitioner Family | DX: D23.62 Other benign neoplasm of skin of left upper limb, including shoulder (principal) ==

== ENCOUNTER 2024-05-18 10:18 | Outpatient (CLI) | payer MEDICARE ==
[~2024-05-18] VITALS: Ht 160 cm; Wt 114.0 kg
[~2024-05-18 10:18] MED LIST changes: +ALBUTEROL SULFATE 2.5MG/0.5ML INH NEB SOLN INH PRN; +EPINEPHrine INJ 1 MG/ML 1ML AMP IM PRN; +diphenhydrAMINE 50MG/ML VIAL IV PRN; +methylPREDNISolone 125MG 2ML VIAL IV PRN
[2024-05-18 10:43] VITALS: BP 114/58; O2SAT 97
[2024-05-18] MEDS: IRON SUCROSE 300 MG in NS 250 ML IV ONE (10:54)
[2024-05-18] MEDS ORDERED: ELIQ2.5T PO (11:00)
[2024-05-18] MEDS ORDERED: CLOP75TA2 PO (11:00)
[2024-05-18] MEDS ORDERED: TOPR25TA PO (11:00)
[2024-05-18] MEDS ORDERED: OMEP1CAP71 PO (11:03)
[2024-05-18] MEDS ORDERED: IRBE75TA11 PO (11:03)
[2024-05-18 12:50] VITALS: BP 90/44; O2SAT 96
== END 2024-05-18 12:50 ==
LOC: M INFU 10:18
PROVIDERS: ATTEND Internal Medicine Hematology
DX: D50.8 Other iron deficiency anemias (principal); Z88.2 Allergy status to sulfonamides
CPT/HCPCS: 96365; 96366; J1756

== ENCOUNTER 2024-06-15 10:35 | Outpatient (CLI) | payer MEDICARE ==
[~2024-06-15] VITALS: Ht 160 cm; Wt 113.6 kg
[~2024-06-15 10:35] MED LIST changes: +CLOP75TA2 PO; +ELIQ2.5T PO; +IRBE75TA11 PO; +OMEP1CAP71 PO; +TOPR25TA PO
[2024-06-15 10:40] VITALS: BP 113/65; O2SAT 98
[2024-06-15] MEDS: IRON SUCROSE 300 MG in NS 250 ML IV ONE (11:13)
[2024-06-15 12:45] VITALS: BP 90/59
== END 2024-06-15 12:50 ==
LOC: M INFU 10:35
PROVIDERS: ATTEND Internal Medicine Hematology
DX: D50.8 Other iron deficiency anemias (principal); Z88.2 Allergy status to sulfonamides
CPT/HCPCS: 96365; 96366; J1756

== ENCOUNTER 2024-07-02 11:30 | Outpatient (CLI) | payer MEDICARE ==
[~2024-07-02 11:30] MED LIST changes: +IRON SUCROSE 300 MG in NS 250 ML IV ONE
== END 2024-07-02 14:35 | disposition home or self-care (01) ==
LOC: M INFU 11:30
PROVIDERS: ATTEND Internal Medicine Hematology
DX: Z53.9 Procedure and treatment not carried out, unspecified reason (principal)

== ENCOUNTER → 2024-07-02 | Outpatient (CLI) | payer MEDICARE ==
[~2024-07-02] VITALS: Ht 157.5 cm; Wt 113.6 kg
[2024-07-02 11:50] VITALS: BP 100/55; O2SAT 96
[2024-07-02] MEDS: IRON SUCROSE 300 MG in NS 250 ML IV ONE (12:56)
[2024-07-02 14:35] VITALS: BP 117/79; O2SAT 99
== END ==
LOC: M INFU 11:39
PROVIDERS: ATTEND Internal Medicine Hematology
DX: D50.9 Iron deficiency anemia, unspecified (principal); Z88.2 Allergy status to sulfonamides
CPT/HCPCS: 96365; 96366; J1756

== ENCOUNTER → 2025-01-08 | Outpatient (CLI) | payer MEDICARE, MEDICAID ==
[~2025-01-08] MED LIST changes: -ALBUTEROL SULFATE 2.5MG/0.5ML INH NEB SOLN INH PRN; +ATOR40TA75 PO; -EPINEPHrine INJ 1 MG/ML 1ML AMP IM PRN; +FERR325T19 PO; -IRON SUCROSE 300 MG in NS 250 ML IV ONE; +METO1TAB7 PO; +VENL37.5 PO; -diphenhydrAMINE 50MG/ML VIAL IV PRN; -methylPREDNISolone 125MG 2ML VIAL IV PRN
== END ==
LOC: M WHC 12:33
PROVIDERS: ATTEND Physician Assistant
DX: Z12.31 Encounter for screening mammogram for malignant neoplasm of breast (principal)

== ENCOUNTER → 2025-03-24 | Outpatient (REF) | payer MEDICARE, MEDICAID | LOC: M LAB REF 17:26 | DX: B34.9 Viral infection, unspecified (principal) ==

== ENCOUNTER → 2025-04-19 | Outpatient (CLI) | payer MEDICARE, MEDICAID ==
[~2025-04-19] MED LIST changes: +TIRZ5VIA SQ
[2025-04-19 18:06] LABS: LUTEINIZING HORMONE 6.9 mIU/ML
[2025-04-19 18:09] LABS: ESTRADIOL 105.5 PG/ML
[2025-04-19 18:11] LABS: FREE T4 1.14 NG/DL (0.89-1.76)
== END ==
LOC: M PLALAB 15:35
PROVIDERS: ATTEND Student in an Organized Health Care Education/Training Program
DX: N93.9 Abnormal uterine and vaginal bleeding, unspecified (principal); Z79.899 Other long term (current) drug therapy